=== PATIENT | female | born 1985 | race Caucasian/White ===

== ENCOUNTER 2017-11-15 06:35 | Day surgery (SDC) | payer BC, OTHER ==
[2017-11-15] MEDS ORDERED: LIDOCAINE 1%/EPI 30 ML INJ (10:56)
[2017-11-15] MEDS ORDERED: LIDOCAINE 2% (SDV) 5 ML INJ (11:10)
[2017-11-15] MEDS ORDERED: PROPOFOL 20 ML (11:10)
[2017-11-15] MEDS ORDERED: ONDANSETRON 4 MG INJ (11:40)
[2017-11-15] MEDS ORDERED: METOCLOPRAMIDE 10 MG INJ (11:40)
[2017-11-15] MEDS ORDERED: MEPERIDINE 25 MG INJ IV (12:00)
[2017-11-15] MEDS ORDERED: hydrALAzine 20 MG INJ IV (12:00)
[2017-11-15] MEDS ORDERED: OXYCODONE/ACETAMINOPHEN (5/325) TAB PO ×2 (12:00)
[2017-11-15] MEDS ORDERED: ONDANSETRON 4 MG INJ IV (12:00)
[2017-11-15] MEDS ORDERED: DIPHENHYDRAMINE 50 MG INJ IV (12:00)
[2017-11-15] MEDS ORDERED: LABETALOL HCL 20MG INJ IV (12:00)
[2017-11-15] MEDS ORDERED: FENTAnyl 50 MCG/ML VIAL IV ×3 (12:00)
[2017-11-15] MEDS ORDERED: MIDAZOLAM 1 MG/ML 2 ML INJ IV (12:00)
[2017-11-15] MEDS ORDERED: METOCLOPRAMIDE 10 MG INJ IV (12:00)
[2017-11-15] MEDS ORDERED: EPHEDrine SULFATE 50 MG/5 ML SYG IV (12:00)
== END 2017-11-15 15:00 | disposition home or self-care (01) ==
LOC: SDS 06:35
DX: O65.5 Obstructed labor due to abnormality of maternal pelvic organs (principal); O34.32 Maternal care for cervical incompetence, second trimester; Z3A.16 16 weeks gestation of pregnancy; E66.01 Morbid (severe) obesity due to excess calories; Z68.43 Body mass index [BMI] 50.0-59.9, adult
CPT/HCPCS: 59320; 76815; 86850; 86900; 86901

== ENCOUNTER 2017-11-23 07:49 | Emergency (ER) | payer BC ==
[2017-11-23 11:09] LABS: ADD MAN DIFF? NO
[2017-11-23 11:12] LABS: WHITE BLOOD COUNT 19.2 10^3/ul (4.8-10.8)
[2017-11-23 11:12] LABS: BASOPHIL # 0.1 10^3/ul (0.0-0.1); BASOPHILS % 0.3 % (0.0-2.0); EOSINOPHILS # 0.1 10^3/ul (0.0-0.5); EOSINOPHILS % 0.7 % (0.0-7.0); HEMATOCRIT 37.9 % (37.0-47.0); LYMPHOCYTES # 2.1 10^3/ul (0.8-2.9); LYMPHOCYTES % 10.8 % (15.0-51.0); MEAN CORPUSCULAR HEMOGLOBIN 30.5 pg (29.0-33.0); MEAN CORPUSCULAR HGB CONC 34.3 g/dl (32.0-37.0); MEAN PLATELET VOLUME 11.6 fl (7.4-10.4); MONOCYTES % 5.2 % (0.0-11.0); NEUTROPHIL # 15.8 10^3/ul (1.6-7.5); NEUTROPHILS % 82.6 % (39.0-77.0); PLATELET COUNT 220 10^3/UL (140-415); RED BLOOD COUNT 4.26 10^6/ul (4.20-5.40); RED CELL DISTRIBUTION WIDTH 13.1 % (11.5-14.5)
[2017-11-23 11:34] LABS: ADD UMIC YES; UR ASCORBIC ACID NEGATIVE (NEGATIVE); UR BACTERIA FEW /HPF (NONE SEEN); UR BILIRUBIN (Dip) NEGATIVE (NEGATIVE); UR BLOOD (Dip) 2+ mg/dL (NEGATIVE); UR CLARITY CLOUDY (CLEAR); UR COLOR YELLOW (YELLOW); UR GLUCOSE (Dip) NEGATIVE (NEGATIVE); UR KETONES (Dip) NEGATIVE (NEGATIVE); UR LEUKOCYTE ESTERASE (Dip) 3+ Leu/ul (NEGATIVE); UR MUCUS MODERATE /HPF (NONE SEEN); UR NITRITE (Dip) POSITIVE (NEGATIVE); UR RBC 0 /HPF (0-5); UR SPECIFIC GRAVITY (Dip) 1.015 (1.003-1.030); UR SQUAMOUS EPITHELIAL CELL FEW /HPF (FEW); UR TOTAL PROTEIN (Dip) NEGATIVE (NEGATIVE); UR UROBILINOGEN (Dip) NEGATIVE (NEGATIVE); UR WBC 148 /HPF (0-5)
== END 2017-11-23 11:44 | disposition admitted as inpatient to this hospital (09) ==
LOC: FTE 07:49
DX: O42.912 Preterm premature rupture of membranes, unspecified as to length of time between rupture and onset of labor, second trimester (principal); Z3A.16 16 weeks gestation of pregnancy
CPT/HCPCS: 36415; 76805; 81001; 85025; 86850; 86900; 86901; 99285-25

== ENCOUNTER 2017-11-23 11:48 | Inpatient (IN) | payer BC ==
[~2017-11-23 11:48] MED LIST: METHYLERGONOVINE 0.2 MG INJ
[2017-11-23] MEDS ORDERED: OXYTOCIN 30 UNITS/LR 500 ML IV ×2 (12:00)
[2017-11-23] MEDS ORDERED: METHYLERGONOVINE 0.2 MG INJ IM (12:00)
[2017-11-23] MEDS ORDERED: CARBOPROST 250 MCG INJ IM (12:00)
[2017-11-23] MEDS ORDERED: MISOPROSTOL 200 MCG TAB PR (12:00)
[2017-11-23] MEDS: LACTATED RINGER'S 1,000 ML IV* ×2 (12:21→20:00)
[2017-11-23 12:24] LABS: ADD MAN DIFF? NO
[2017-11-23 12:26] LABS: BASOPHIL # 0.1 10^3/ul (0.0-0.1); BASOPHILS % 0.3 % (0.0-2.0); EOSINOPHILS # 0.1 10^3/ul (0.0-0.5); EOSINOPHILS % 0.7 % (0.0-7.0); HEMATOCRIT 35.5 % (37.0-47.0); HEMOGLOBIN 12.4 g/dl (12.0-16.0); LYMPHOCYTES # 1.9 10^3/ul (0.8-2.9); MEAN CORPUSCULAR HGB CONC 34.9 g/dl (32.0-37.0); MEAN CORPUSCULAR VOLUME 88.8 fl (82.0-101.0); MEAN PLATELET VOLUME 11.5 fl (7.4-10.4); MONOCYTES % 5.1 % (0.0-11.0); NEUTROPHIL # 16.3 10^3/ul (1.6-7.5); NEUTROPHILS % 83.5 % (39.0-77.0); PLATELET COUNT 205 10^3/UL (140-415); RED CELL DISTRIBUTION WIDTH 13.1 % (11.5-14.5)
[2017-11-23 12:26] LABS: WHITE BLOOD COUNT 19.5 10^3/ul (4.8-10.8)
[2017-11-23 12:59] LABS: INR 0.96; PROTIME 12.9 Sec (11.9-14.9)
[2017-11-23 13:00] LABS: PARTIAL THROMBOPLASTIN TIME 29.1 Sec (25.0-35.0)
[2017-11-23] MEDS: OXYTOCIN 30 UNITS/LR 500 ML IV (14:11)
[2017-11-23] MEDS: CLINDAMYCIN 900 MG/D5W (PMX) 50 ML IV (14:19)
[2017-11-23] MEDS: GENTAMICIN IN NACL, ISO-OSM 50 ML IVPB ×2 (16:04→23:23)
[2017-11-23] MEDS: BUTORPHANOL 2 MG INJ IV (16:50)
[2017-11-23] MEDS ORDERED: CEFAZOLIN 1 GM INJ (19:24)
[2017-11-23] MEDS ORDERED: PROPOFOL 20 ML ×2 (19:24→19:27)
[2017-11-23] MEDS ORDERED: METOCLOPRAMIDE 10 MG INJ (19:27)
[2017-11-23] MEDS ORDERED: FENTAnyl 50 MCG/ML VIAL (19:37)
[2017-11-23] MEDS ORDERED: OXYTOCIN 10 UNIT INJ ×3 (19:41→19:45)
[2017-11-23] MEDS ORDERED: KETOROLAC 30 MG INJ (20:08)
[2017-11-23] MEDS ORDERED: ONDANSETRON 4 MG INJ IV (20:30)
[2017-11-23] MEDS ORDERED: DIPHENHYDRAMINE 50 MG INJ IV (20:30)
[2017-11-23] MEDS ORDERED: HYDROmorphONE 2 MG/ML SYG IV (20:30)
[2017-11-23] MEDS ORDERED: HYDROmorphONE 1 MG/5 ML IV SYRINGE IV ×2 (20:30)
[2017-11-23] MEDS ORDERED: MEPERIDINE 25 MG INJ IV (20:30)
[2017-11-23] MEDS: HYDROmorphONE 1 MG/5 ML IV SYRINGE IV (20:45)
[2017-11-23 21:18] LABS: ADD MAN DIFF? NO
[2017-11-23 21:20] LABS: WHITE BLOOD COUNT 17.4 10^3/ul (4.8-10.8)
[2017-11-23 21:20] LABS: BASOPHILS % 0.2 % (0.0-2.0); EOSINOPHILS # 0.1 10^3/ul (0.0-0.5); EOSINOPHILS % 0.5 % (0.0-7.0); HEMATOCRIT 34.3 % (37.0-47.0); HEMOGLOBIN 11.8 g/dl (12.0-16.0); LYMPHOCYTES # 2.1 10^3/ul (0.8-2.9); LYMPHOCYTES % 11.9 % (15.0-51.0); MEAN CORPUSCULAR HGB CONC 34.4 g/dl (32.0-37.0); MEAN PLATELET VOLUME 11.8 fl (7.4-10.4); MONOCYTE # 1.1 10^3/ul (0.3-0.9); NEUTROPHIL # 14.1 10^3/ul (1.6-7.5); NEUTROPHILS % 80.9 % (39.0-77.0); PLATELET COUNT 200 10^3/UL (140-415); RED BLOOD COUNT 3.81 10^6/ul (4.20-5.40); RED CELL DISTRIBUTION WIDTH 13.2 % (11.5-14.5)
[2017-11-23 21:41] LABS: ANION GAP 15 (8-16); BLOOD UREA NITROGEN 3 mg/dl (7-20); CALCIUM 8.6 mg/dl (8.4-10.2); CARBON DIOXIDE 21 mmol/L (21-31); CHLORIDE 107 mmol/L (97-110); CREATININE 0.44 mg/dl (0.44-1.00); GLUCOSE 95 mg/dl (70-220); POTASSIUM 3.5 mmol/L (3.5-5.1); PROTIME 13.9 Sec (11.9-14.9); SODIUM 139 mmol/L (135-144)
[2017-11-23 21:42] LABS: PARTIAL THROMBOPLASTIN TIME 30.4 Sec (25.0-35.0)
[2017-11-23] MEDS ORDERED: ALBUMIN HUMAN 5% 250 ML (21:42)
[2017-11-23] MEDS: DEXTROSE 5%-0.45% NACL 1,000 ML IV (23:25)
[2017-11-24] MEDS: CLINDAMYCIN 900 MG/D5W (PMX) 50 ML IVPB ×4 (00:29→22:18)
[2017-11-24] MEDS: HYDROmorphONE 1 MG/ML SYG IV ×4 (01:17→22:24)
[2017-11-24 01:34] LABS: IMMEDIATE SPIN CROSSMATCH 1 1
[2017-11-24] MEDS: DEXTROSE 5%-0.45% NACL 1,000 ML IV ×3 (03:10→16:30)
[2017-11-24] MEDS: LACTATED RINGER'S 1,000 ML IV* ×2 (04:00→12:00)
[2017-11-24 07:38] LABS: ADD MAN DIFF? NO
[2017-11-24 08:03] LABS: INR 1.09; PROTIME 14.2 Sec (11.9-14.9); PT RATIO 1.1
[2017-11-24 08:04] LABS: PARTIAL THROMBOPLASTIN TIME 30.3 Sec (25.0-35.0)
[2017-11-24 08:16] LABS: BASOPHILS % 0.3 % (0.0-2.0); EOSINOPHILS # 0.2 10^3/ul (0.0-0.5); EOSINOPHILS % 1.2 % (0.0-7.0); HEMATOCRIT 31.8 % (37.0-47.0); HEMOGLOBIN 10.9 g/dl (12.0-16.0); LYMPHOCYTES # 2.2 10^3/ul (0.8-2.9); LYMPHOCYTES % 14.3 % (15.0-51.0); MEAN CORPUSCULAR HEMOGLOBIN 30.4 pg (29.0-33.0); MEAN CORPUSCULAR HGB CONC 34.3 g/dl (32.0-37.0); MEAN CORPUSCULAR VOLUME 88.8 fl (82.0-101.0); MEAN PLATELET VOLUME 11.4 fl (7.4-10.4); MONOCYTES % 6.6 % (0.0-11.0); NEUTROPHIL # 11.6 10^3/ul (1.6-7.5); NEUTROPHILS % 77.3 % (39.0-77.0); PLATELET COUNT 193 10^3/UL (140-415); RED BLOOD COUNT 3.58 10^6/ul (4.20-5.40); RED CELL DISTRIBUTION WIDTH 13.2 % (11.5-14.5)
[2017-11-24 08:16] LABS: WHITE BLOOD COUNT 15.1 10^3/ul (4.8-10.8)
[2017-11-24] MEDS: GENTAMICIN IN NACL, ISO-OSM 50 ML IVPB ×3 (08:31→23:44)
[2017-11-24 08:43] LABS: ALANINE AMINOTRANSFERASE 21 IU/L (13-69); ALBUMIN 3.2 g/dl (3.3-4.9); ALKALINE PHOSPHATASE 58 IU/L (42-121); ANION GAP 13 (8-16); ASPARTATE AMINO TRANSFERASE 12 IU/L (15-46); BILIRUBIN,INDIRECT 0.7 mg/dl (0-1.1); BILIRUBIN,TOTAL 0.7 mg/dl (0.2-1.3); BLOOD UREA NITROGEN 5 mg/dl (7-20); CALCIUM 8.3 mg/dl (8.4-10.2); CARBON DIOXIDE 21 mmol/L (21-31); CHLORIDE 108 mmol/L (97-110); CREATININE 0.51 mg/dl (0.44-1.00); GLUCOSE 120 mg/dl (70-220); POTASSIUM 3.5 mmol/L (3.5-5.1); SODIUM 138 mmol/L (135-144); TOTAL PROTEIN 6.1 g/dl (6.1-8.1)
[2017-11-24] MEDS: IBUPROFEN 600 MG TAB PO (19:36)
[2017-11-24 21:56] LABS: RAPID PLASMA REAGIN NONREACTIVE (NR)
[2017-11-25 05:15] LABS: ADD MAN DIFF? NO
[2017-11-25 05:24] LABS: BASOPHIL # 0.1 10^3/ul (0.0-0.1); BASOPHILS % 0.4 % (0.0-2.0); EOSINOPHILS # 0.3 10^3/ul (0.0-0.5); EOSINOPHILS % 1.8 % (0.0-7.0); HEMATOCRIT 29.2 % (37.0-47.0); LYMPHOCYTES # 2.2 10^3/ul (0.8-2.9); LYMPHOCYTES % 15.1 % (15.0-51.0); MEAN CORPUSCULAR HEMOGLOBIN 30.8 pg (29.0-33.0); MEAN CORPUSCULAR HGB CONC 34.2 g/dl (32.0-37.0); MEAN CORPUSCULAR VOLUME 89.8 fl (82.0-101.0); MEAN PLATELET VOLUME 11.6 fl (7.4-10.4); MONOCYTES % 6.8 % (0.0-11.0); NEUTROPHIL # 10.8 10^3/ul (1.6-7.5); NEUTROPHILS % 75.4 % (39.0-77.0); PLATELET COUNT 179 10^3/UL (140-415); RED BLOOD COUNT 3.25 10^6/ul (4.20-5.40); RED CELL DISTRIBUTION WIDTH 13.2 % (11.5-14.5)
[2017-11-25 05:24] LABS: WHITE BLOOD COUNT 14.3 10^3/ul (4.8-10.8)
[2017-11-25] MEDS: CLINDAMYCIN 900 MG/D5W (PMX) 50 ML IVPB ×2 (05:34→13:53)
[2017-11-25] MEDS: IBUPROFEN 600 MG TAB PO (09:03)
[2017-11-25] MEDS: GENTAMICIN IN NACL, ISO-OSM 50 ML IVPB ×3 (09:36→17:55)
[2017-11-25] MEDS: DEXTROSE 5%-LR 1,000 ML IV ×2 (10:57→18:53)
[2017-11-25] MEDS: HYDROmorphONE 1 MG/ML SYG IV ×3 (10:58→23:12)
[2017-11-25] MEDS: ACETAMINOPHEN 325 MG TAB PO ×2 (13:41→22:24)
[2017-11-25] MEDS ORDERED: SUCCINYLCHOLINE CHLORIDE 100 MG/5 ML SYG IV (16:59)
[2017-11-25] MEDS ORDERED: ROCURONIUM 50 MG INJ (16:59)
[2017-11-25] MEDS ORDERED: OXYTOCIN 10 UNIT INJ (16:59)
[2017-11-25] MEDS ORDERED: PROPOFOL 20 ML (16:59)
[2017-11-25] MEDS ORDERED: LIDOCAINE 100 MG SYRINGE (16:59)
[2017-11-25] MEDS ORDERED: SUGAMMADEX SODIUM 200 MG/2 ML VIAL IV (16:59)
[2017-11-25] MEDS ORDERED: PHENYLephrine (100 MCG/ML) 5ML SYG ×2 (17:06→17:23)
[2017-11-25] MEDS ORDERED: DIPHENHYDRAMINE 50 MG INJ IV (17:30)
[2017-11-25] MEDS ORDERED: MEPERIDINE 25 MG INJ IV (17:30)
[2017-11-25] MEDS ORDERED: FENTAnyl 50 MCG/ML VIAL IV ×2 (17:30)
[2017-11-25] MEDS ORDERED: ALBUTEROL 0.083% (NEB) 2.5 MG/3 ML AMP HHN (17:30)
[2017-11-25] MEDS ORDERED: HYDROmorphONE 1 MG/5 ML IV SYRINGE IV (17:30)
[2017-11-25] MEDS: HYDROmorphONE 1 MG/5 ML IV SYRINGE IV ×2 (17:55→18:10)
[2017-11-25] MEDS ORDERED: GENTAMICIN IN NACL, ISO-OSM 50 ML IVPB (18:00)
[2017-11-25 20:55] LABS: LACTIC ACID 2.8 mmol/L (0.5-2.0)
[2017-11-25 21:16] LABS: ADD MAN DIFF? NO
[2017-11-25 21:17] LABS: BASOPHILS % 0.2 % (0.0-2.0); EOSINOPHILS % 0.1 % (0.0-7.0); HEMATOCRIT 32.5 % (37.0-47.0); HEMOGLOBIN 11.1 g/dl (12.0-16.0); LYMPHOCYTES # 0.7 10^3/ul (0.8-2.9); LYMPHOCYTES % 4.2 % (15.0-51.0); MEAN CORPUSCULAR HEMOGLOBIN 31.1 pg (29.0-33.0); MEAN CORPUSCULAR HGB CONC 34.2 g/dl (32.0-37.0); MEAN PLATELET VOLUME 12.1 fl (7.4-10.4); MONOCYTE # 0.7 10^3/ul (0.3-0.9); NEUTROPHIL # 14.6 10^3/ul (1.6-7.5); NEUTROPHILS % 90.9 % (39.0-77.0); PLATELET COUNT 166 10^3/UL (140-415); RED BLOOD COUNT 3.57 10^6/ul (4.20-5.40); RED CELL DISTRIBUTION WIDTH 13.3 % (11.5-14.5)
[2017-11-25 21:17] LABS: WHITE BLOOD COUNT 16.1 10^3/ul (4.8-10.8)
[2017-11-25 21:30] LABS: ALANINE AMINOTRANSFERASE 18 IU/L (13-69); ALBUMIN 3.7 g/dl (3.3-4.9); ALBUMIN/GLOBULIN RATIO 1.19; ALKALINE PHOSPHATASE 70 IU/L (42-121); ANION GAP 15 (8-16); ASPARTATE AMINO TRANSFERASE 29 IU/L (15-46); BILIRUBIN,INDIRECT 0.5 mg/dl (0-1.1); BILIRUBIN,TOTAL 0.5 mg/dl (0.2-1.3); BLOOD UREA NITROGEN 3 mg/dl (7-20); CALCIUM 8.8 mg/dl (8.4-10.2); CARBON DIOXIDE 22 mmol/L (21-31); CHLORIDE 105 mmol/L (97-110); CREATININE 0.52 mg/dl (0.44-1.00); GLUCOSE 121 mg/dl (70-220); POTASSIUM 3.8 mmol/L (3.5-5.1); SODIUM 138 mmol/L (135-144); TOTAL PROTEIN 6.8 g/dl (6.1-8.1)
[2017-11-25] MEDS ORDERED: CLINDAMYCIN 900 MG/D5W (PMX) 50 ML IVPB (22:00)
[2017-11-25] MEDS: metroNIDAZOLE 500 MG/NS (PMX) 100 ML IVPB (22:44)
[2017-11-26 00:12] LABS: ADD UMIC YES; UR ASCORBIC ACID NEGATIVE (NEGATIVE); UR BILIRUBIN (Dip) NEGATIVE (NEGATIVE); UR BLOOD (Dip) 3+ mg/dL (NEGATIVE); UR CLARITY CLOUDY (CLEAR); UR COLOR RED (YELLOW); UR GLUCOSE (Dip) NEGATIVE (NEGATIVE); UR KETONES (Dip) 1+ mg/dL (NEGATIVE); UR LEUKOCYTE ESTERASE (Dip) TRACE Leu/ul (NEGATIVE); UR MUCUS FEW /HPF (NONE SEEN); UR NITRITE (Dip) NEGATIVE (NEGATIVE); UR RBC > 182 /HPF (0-5); UR SPECIFIC GRAVITY (Dip) 1.021 (1.003-1.030); UR TOTAL PROTEIN (Dip) 2+ mg/dl (NEGATIVE); UR UROBILINOGEN (Dip) NEGATIVE (NEGATIVE); UR WBC 41 /HPF (0-5)
[2017-11-26] MEDS: AMPICILLIN/SULB 3 GM/NS (PMX) 100 ML IVPB ×3 (00:36→16:31)
[2017-11-26] MEDS: DEXTROSE 5%-LR 1,000 ML IV ×3 (02:52→21:31)
[2017-11-26] MEDS: ACETAMINOPHEN 325 MG TAB PO ×2 (02:56→06:49)
[2017-11-26] MEDS: GENTAMICIN IN NACL, ISO-OSM 50 ML IVPB ×3 (02:56→17:28)
[2017-11-26] MEDS: metroNIDAZOLE 500 MG/NS (PMX) 100 ML IVPB ×3 (05:37→21:48)
[2017-11-26] MEDS: HYDROmorphONE 1 MG/ML SYG IV ×4 (07:41→21:48)
[2017-11-26 09:00] LABS: ADD MAN DIFF? NO
[2017-11-26 09:12] LABS: WHITE BLOOD COUNT 9.3 10^3/ul (4.8-10.8)
[2017-11-26 09:12] LABS: ABNORMAL IP MESSAGE 1; BASOPHILS % 0.3 % (0.0-2.0); HEMATOCRIT 28.4 % (37.0-47.0); HEMOGLOBIN 9.8 g/dl (12.0-16.0); LYMPHOCYTES # 0.4 10^3/ul (0.8-2.9); LYMPHOCYTES % 3.9 % (15.0-51.0); MEAN CORPUSCULAR HEMOGLOBIN 30.8 pg (29.0-33.0); MEAN CORPUSCULAR HGB CONC 34.5 g/dl (32.0-37.0); MEAN CORPUSCULAR VOLUME 89.3 fl (82.0-101.0); MEAN PLATELET VOLUME 11.5 fl (7.4-10.4); MONOCYTE # 0.6 10^3/ul (0.3-0.9); MONOCYTES % 5.9 % (0.0-11.0); NEUTROPHIL # 8.3 10^3/ul (1.6-7.5); NEUTROPHILS % 88.8 % (39.0-77.0); PLATELET COUNT 153 10^3/UL (140-415); RED BLOOD COUNT 3.18 10^6/ul (4.20-5.40); RED CELL DISTRIBUTION WIDTH 13.2 % (11.5-14.5)
[2017-11-26 09:15] LABS: POSITIVE DIFF @See below
[2017-11-26] MEDS: MAGNESIUM HYDROXIDE 30ML CUP PO (09:25)
[2017-11-26] MEDS: BISACODYL 10 MG SUPP PR (09:25)
[2017-11-26 09:37] LABS: ALANINE AMINOTRANSFERASE 27 IU/L (13-69); ALBUMIN 3.1 g/dl (3.3-4.9); ALBUMIN/GLOBULIN RATIO 1.06; ALKALINE PHOSPHATASE 58 IU/L (42-121); ANION GAP 11 (8-16); ASPARTATE AMINO TRANSFERASE 28 IU/L (15-46); BILIRUBIN,INDIRECT 0.4 mg/dl (0-1.1); BILIRUBIN,TOTAL 0.4 mg/dl (0.2-1.3); BLOOD UREA NITROGEN 3 mg/dl (7-20); CALCIUM 8.4 mg/dl (8.4-10.2); CARBON DIOXIDE 25 mmol/L (21-31); CHLORIDE 103 mmol/L (97-110); CREATININE 0.55 mg/dl (0.44-1.00); GLUCOSE 138 mg/dl (70-220); POTASSIUM 3.2 mmol/L (3.5-5.1); SODIUM 136 mmol/L (135-144)
[2017-11-26] MEDS: POTASSIUM CHLORIDE (SR) 20 MEQ TAB PO (12:39)
[2017-11-27] MEDS: AMPICILLIN/SULB 3 GM/NS (PMX) 100 ML IVPB ×4 (00:21→23:09)
[2017-11-27] MEDS: DEXTROSE 5%-LR 1,000 ML IV ×2 (00:22→17:06)
[2017-11-27] MEDS: GENTAMICIN IN NACL, ISO-OSM 50 ML IVPB ×3 (01:35→17:06)
[2017-11-27] MEDS: metroNIDAZOLE 500 MG/NS (PMX) 100 ML IVPB ×3 (05:14→21:17)
[2017-11-27] MEDS: HYDROmorphONE 1 MG/ML SYG IV ×4 (05:49→21:23)
[2017-11-27 06:10] LABS: ADD MAN DIFF? NO
[2017-11-27 06:20] LABS: BASOPHILS % 0.5 % (0.0-2.0); EOSINOPHILS % 0.7 % (0.0-7.0); HEMATOCRIT 28.4 % (37.0-47.0); HEMOGLOBIN 9.7 g/dl (12.0-16.0); LYMPHOCYTES # 1.4 10^3/ul (0.8-2.9); LYMPHOCYTES % 24.3 % (15.0-51.0); MEAN CORPUSCULAR HEMOGLOBIN 30.9 pg (29.0-33.0); MEAN CORPUSCULAR HGB CONC 34.2 g/dl (32.0-37.0); MEAN CORPUSCULAR VOLUME 90.4 fl (82.0-101.0); MONOCYTE # 0.6 10^3/ul (0.3-0.9); MONOCYTES % 10.6 % (0.0-11.0); NEUTROPHIL # 3.6 10^3/ul (1.6-7.5); NEUTROPHILS % 62.3 % (39.0-77.0); PLATELET COUNT 156 10^3/UL (140-415); RED BLOOD COUNT 3.14 10^6/ul (4.20-5.40); RED CELL DISTRIBUTION WIDTH 13.5 % (11.5-14.5)
[2017-11-27 06:20] LABS: WHITE BLOOD COUNT 5.7 10^3/ul (4.8-10.8)
[2017-11-27 07:06] LABS: ALANINE AMINOTRANSFERASE 24 IU/L (13-69); ALBUMIN 2.9 g/dl (3.3-4.9); ALKALINE PHOSPHATASE 49 IU/L (42-121); ANION GAP 14 (8-16); ASPARTATE AMINO TRANSFERASE 28 IU/L (15-46); BILIRUBIN,INDIRECT 0.1 mg/dl (0-1.1); BILIRUBIN,TOTAL 0.1 mg/dl (0.2-1.3); BLOOD UREA NITROGEN 5 mg/dl (7-20); CALCIUM 8.4 mg/dl (8.4-10.2); CARBON DIOXIDE 28 mmol/L (21-31); CHLORIDE 101 mmol/L (97-110); CREATININE 0.54 mg/dl (0.44-1.00); GLUCOSE 125 mg/dl (70-220); POTASSIUM 3.6 mmol/L (3.5-5.1); SODIUM 139 mmol/L (135-144); TOTAL PROTEIN 5.8 g/dl (6.1-8.1)
[2017-11-27] MEDS: ACETAMINOPHEN 325 MG TAB PO (21:17)
[2017-11-28] MEDS: GENTAMICIN IN NACL, ISO-OSM 50 ML IVPB ×2 (00:21→08:19)
[2017-11-28] MEDS: DEXTROSE 5%-LR 1,000 ML IV (03:26)
[2017-11-28] MEDS: HYDROmorphONE 1 MG/ML SYG IV (03:29)
[2017-11-28] MEDS: metroNIDAZOLE 500 MG/NS (PMX) 100 ML IVPB (05:41)
[2017-11-28 05:47] LABS: ADD MAN DIFF? NO
[2017-11-28 05:52] LABS: BASOPHILS % 0.7 % (0.0-2.0); EOSINOPHILS # 0.3 10^3/ul (0.0-0.5); EOSINOPHILS % 4.6 % (0.0-7.0); HEMATOCRIT 28.9 % (37.0-47.0); HEMOGLOBIN 9.7 g/dl (12.0-16.0); LYMPHOCYTES % 33.7 % (15.0-51.0); MEAN CORPUSCULAR HEMOGLOBIN 30.6 pg (29.0-33.0); MEAN CORPUSCULAR HGB CONC 33.6 g/dl (32.0-37.0); MEAN CORPUSCULAR VOLUME 91.2 fl (82.0-101.0); MEAN PLATELET VOLUME 11.4 fl (7.4-10.4); MONOCYTE # 0.8 10^3/ul (0.3-0.9); MONOCYTES % 14.1 % (0.0-11.0); NEUTROPHIL # 2.7 10^3/ul (1.6-7.5); NEUTROPHILS % 45.5 % (39.0-77.0); PLATELET COUNT 170 10^3/UL (140-415); RED BLOOD COUNT 3.17 10^6/ul (4.20-5.40); RED CELL DISTRIBUTION WIDTH 13.4 % (11.5-14.5)
[2017-11-28 05:52] LABS: WHITE BLOOD COUNT 5.9 10^3/ul (4.8-10.8)
[2017-11-28 06:26] LABS: ANION GAP 12 (8-16); BLOOD UREA NITROGEN 7 mg/dl (7-20); CALCIUM 8.3 mg/dl (8.4-10.2); CARBON DIOXIDE 26 mmol/L (21-31); CHLORIDE 105 mmol/L (97-110); CREATININE 0.49 mg/dl (0.44-1.00); GLUCOSE 91 mg/dl (70-220); POTASSIUM 3.7 mmol/L (3.5-5.1); SODIUM 139 mmol/L (135-144)
[2017-11-28] MEDS: AMPICILLIN/SULB 3 GM/NS (PMX) 100 ML IVPB (06:45)
[2017-11-28] MEDS: ACETAMINOPHEN 325 MG TAB PO (07:30)
== END 2017-11-28 11:30 | disposition home or self-care (01) | DRG 770 ==
LOC: L-D 11:48 → MS1 21:42
PROVIDERS: Obstetrics & Gynecology
PROC: 10D17ZZ Extraction of Products of Conception, Retained, Via Natural or Artificial Opening (ICD-10-PCS; principal; 2017-11-23 19:32)
PROC: 10D17ZZ Extraction of Products of Conception, Retained, Via Natural or Artificial Opening (ICD-10-PCS; 2017-11-23 19:32)
PROC: 0UCC7ZZ Extirpation of Matter from Cervix, Via Natural or Artificial Opening (ICD-10-PCS; 2017-11-23 19:32)
PROC: 30233N1 Transfusion of Nonautologous Red Blood Cells into Peripheral Vein, Percutaneous Approach (ICD-10-PCS; 2017-11-23 19:32)
DX: O03.4 Incomplete spontaneous abortion without complication (principal); O41.1220 Chorioamnionitis, second trimester, not applicable or unspecified; O34.32 Maternal care for cervical incompetence, second trimester; Z68.43 Body mass index [BMI] 50.0-59.9, adult; Z3A.16 16 weeks gestation of pregnancy; O99.214 Obesity complicating childbirth; E66.01 Morbid (severe) obesity due to excess calories; O75.89 Other specified complications of labor and delivery
CPT/HCPCS: 36430; 72195; 76830; 76856; 80048; 80053; 81001; 83605; 85025; 85335; 85384; 85610; 85730; 86592; 86850; 86900; 86901; 86920; 87040; 87070; 87075; 87081; 87086; 87102; 88305; 88307